=== PATIENT | female | born 1955 | race Caucasian/White ===

== ENCOUNTER → 2024-05-07 15:39 | Outpatient (REF) | payer BC, SELFPAY | LOC: WDC 15:39 | PROVIDERS: ATTENDING PHYSICIAN Nurse Practitioner Women's Health; FAMILY PHYSICIAN Nurse Practitioner | DX: Z12.31 Encounter for screening mammogram for malignant neoplasm of breast (principal) | CPT/HCPCS: 77063; 77067 ==

== ENCOUNTER → 2024-11-16 13:46 | Outpatient (REF) | payer BC, SELFPAY | LOC: HWRAD 13:46 | PROVIDERS: ATTENDING PHYSICIAN Nurse Practitioner | DX: Z87.891 Personal history of nicotine dependence (principal) | CPT/HCPCS: 71271 ==